=== PATIENT | male | born 1975 | race Caucasian/White ===

== ENCOUNTER → 2018-02-18 | Outpatient (CLI) | payer BC ==
[~2018-02-18] VITALS: Ht 179.1 cm; Wt 112.0 kg
[~2018-02-18] MED LIST: ALEVE 220MG220 MG PO; CRESTOR5 MG PO; GLUCOPHAGE1000 MG PO; JARDIANCE10 PO; KLONOPIN 0.5MG0.5 MG PO; MOBIC15 MG PO; NOVOLOG 100U100 U/M1 SQ; PRINIVIL2.5 MG PO; TYLENOL 500MG500 MG PO
[2018-02-18 13:34] VITALS: BP 124/80; PULSE 88
== END ==
LOC: LIGHT 13:05
DX: E11.9 Type 2 diabetes mellitus without complications (principal); E78.5 Hyperlipidemia, unspecified; E66.9 Obesity, unspecified; Z68.34 Body mass index [BMI] 34.0-34.9, adult; Z71.3 Dietary counseling and surveillance; G47.33 Obstructive sleep apnea (adult) (pediatric)
CPT/HCPCS: G0463

== ENCOUNTER → 2018-03-08 | Outpatient (CLI) | payer BC | LOC: LIGHT 13:40 | DX: Z01.89 Encounter for other specified special examinations (principal) ==

== ENCOUNTER → 2018-03-22 | Outpatient (CLI) | payer BC | LOC: LIGHT 14:49 | DX: Z01.818 Encounter for other preprocedural examination (principal) ==

== ENCOUNTER → 2018-04-01 | Outpatient (CLI) | payer BC ==
[~2018-04-01] VITALS: Ht 179.1 cm; Wt 115.2 kg
[~2018-04-01] MED LIST changes: +TOUJEO300 U/ML SQ
[2018-04-01 14:06] VITALS: BP 134/78; PULSE 76
== END ==
LOC: LIGHT 13:41
DX: E11.9 Type 2 diabetes mellitus without complications (principal); E78.5 Hyperlipidemia, unspecified; E66.9 Obesity, unspecified; Z68.35 Body mass index [BMI] 35.0-35.9, adult; Z71.3 Dietary counseling and surveillance; G47.33 Obstructive sleep apnea (adult) (pediatric)
CPT/HCPCS: G0463

== ENCOUNTER → 2018-04-28 | Outpatient (CLI) | payer BC | LOC: BHSO 08:51 | DX: Z01.818 Encounter for other preprocedural examination (principal) ==

== ENCOUNTER → 2018-07-08 | Outpatient (CLI) | payer BC ==
[~2018-07-08] VITALS: Ht 179.1 cm; Wt 115.0 kg
[2018-07-08 13:18] VITALS: BP 126/70; PULSE 93
== END ==
LOC: LIGHT 11:34
DX: E11.9 Type 2 diabetes mellitus without complications (principal); E78.5 Hyperlipidemia, unspecified; G47.33 Obstructive sleep apnea (adult) (pediatric); E66.9 Obesity, unspecified; Z68.35 Body mass index [BMI] 35.0-35.9, adult; Z71.3 Dietary counseling and surveillance
CPT/HCPCS: G0463

== ENCOUNTER → 2018-08-05 | Outpatient (CLI) | payer BC ==
[~2018-08-05] VITALS: Ht 179.1 cm; Wt 119.7 kg
[2018-08-05 13:08] VITALS: BP 148/64; PULSE 80
== END ==
LOC: LIGHT 11:38
DX: E11.9 Type 2 diabetes mellitus without complications (principal); E78.5 Hyperlipidemia, unspecified; G47.33 Obstructive sleep apnea (adult) (pediatric); E66.9 Obesity, unspecified; Z68.37 Body mass index [BMI] 37.0-37.9, adult; Z71.3 Dietary counseling and surveillance
CPT/HCPCS: G0463

== ENCOUNTER → 2022-03-14 | Outpatient (CLI) | payer BC, OTHER | LOC: COL.RAD 13:20 | DX: S46.012A Strain of muscle(s) and tendon(s) of the rotator cuff of left shoulder, initial encounter (principal); S43.432D Superior glenoid labrum lesion of left shoulder, subsequent encounter; M75.22 Bicipital tendinitis, left shoulder | CPT/HCPCS: J3301; Q9967 ==